=== PATIENT | female | born 1990 | race Caucasian/White ===

== ENCOUNTER 2017-04-16 08:00 | Emergency (ER) | payer BC ==
[~2017-04-16] VITALS: Ht 170.2 cm; Wt 65.8 kg
--- NOTE | 2017-04-16 08:10 | NUR ---
a/ox4, pt came to er w/ c/o of pain to left flank that started 04/13/17. also had episodes of N/V. Pt stated she has h/o kidney stones in the past. pt is febrile, tachycardic on the monitor. assisted to ed bed 08, nad rr even and unlabored. pending er evaluartion
--- NOTE | 2017-04-16 08:23 | NUR ---
IV started,blood drawn and sent to lab. urine specimen obtained as well and sent to lab. IV NS infusing well to left ac G#[id number] as ordered.
[2017-04-16 08:29] LABS: HEMATOCRIT 39 % (33-45); HEMOGLOBIN 13.3 g/dL (11.5-14.8); LYMPHOCYTES # (AUTO) 0.4 /CMM (0.8-4.8); LYMPHOCYTES % (AUTO) 2.4 % (20.0-44.0); MEAN CORPUSCULAR HEMOGLOBIN 29 PG (26.0-33.0); MEAN CORPUSCULAR HGB CONC 34 g/dl (31.0-36.0); MEAN CORPUSCULAR VOLUME 86 fL (82-100); MONOCYTES # (AUTO) 1.1 /CMM (0.1-1.30); NEUTROPHILS # (AUTO) 14.9 /CMM (1.8-8.9); NEUTROPHILS % (AUTO) 90.6 % (43.0-81.0); PLATELET COUNT (AUTO) 226 /CMM (150-450); RDW COEFFICIENT OF VARIATION 13.6 (11.5-15.0); RED BLOOD CELL COUNT(AUTO) 4.57 MIL/uL (4.0-5.2); WHITE BLOOD COUNT (AUTO) 16.4 K/uL (4.3-11.0)
[2017-04-16] MEDS ORDERED: IV NS 0.9% 1,000 ML BAG IV ONE (08:30)
[2017-04-16] MEDS ORDERED: KETOROLAC TROMETHAMINE INJ 30 MG/ML VIAL IV ONE (08:30)
[2017-04-16 08:35] LABS: APPEARANCE,URINE CLOUDY (CLEAR); BILIRUBIN,URINE NEGATIVE (NEGATIVE); BLOOD, URINE 2+ Ery/uL (NEGATIVE); COLOR,URINE YELLOW (YELLOW); KETONES,URINE 3+ (NEGATIVE); LEUKOCYTE ESTERASE ,URINE 1+ (NEGATIVE); NITRITE, URINE POSITIVE (NEGATIVE); PROTEIN,URINE 3+ mg/dl (NEGATIVE); UGLUCOSE NEGATIVE (NEGATIVE); UROBILINOGEN,URINE 0.2 EU/dL (0.2)
--- NOTE | 2017-04-16 08:44 | NUR ---
called lab to follow up preg test, per Shara, resident hall director- test is negative.
[2017-04-16] MEDS ORDERED: KETOROLAC TROMETHAMINE INJ 30 MG/ML VIAL ONE (08:47)
[2017-04-16 08:53] LABS: BACTERIA,URINE Many /HPF (None Seen); SQUAMOUS EPITHELIAL CELL,UR Few /HPF (None Seen); WBC,URINE 21-50 /HPF (0-3)
[2017-04-16 09:01] LABS: CALCIUM, SERUM 9.6 mg/dL (8.5-10.1); CREATININE 1.3 mg/dL (0.6-1.3); POTASSIUM 4.1 mmol/L (3.5-5.1)
[2017-04-16 09:15] LABS: BAND % (MANUAL) 10 % (0.0-5.0); LYMPHOCYTES % (MANUAL) 4 % (16-48); MONOCYTES % (MANUAL) 8 % (0-11.0); NEUTROPHILS % (MANUAL) 78 (42-76)
--- NOTE | 2017-04-16 09:54 | NUR ---
CALLED PHARMACY FOR JOSHUA KAT TO [place]
[2017-04-16] MEDS ORDERED: CEFTRIAXONE 1GM BAG (ER ONLY) 1 GM/50 ML PIGGYBACK IV ONE (10:00)
--- NOTE | 2017-04-16 10:13 | NUR ---
CALLED PHARMACY TO F/UP SHEY
--- NOTE | 2017-04-16 10:33 | NUR ---
IV removed. Catheter intact and site benign. Pressure and 4x4 applied to site. No bleeding noted. Patient discharged to home in stable condition. Written and verbal after care instructions given. Patient verbalizes understanding of instruction.
[2017-04-16 10:34] VITALS: BP 120/68
== END 2017-04-16 10:34 | disposition home or self-care (01) ==
LOC: ER 08:00
DX: N10 Acute pyelonephritis (principal); D72.829 Elevated white blood cell count, unspecified; Z87.442 Personal history of urinary calculi
CPT/HCPCS: 36415; 80048; 81001; 84703; 85025; 87077; 87086; 87186; 96361; 96365; 96374; 99284; A4606; J0696; J1885; J7030; Z7610; 81000-TC